=== PATIENT | female | born 2000 | race Two or more races ===

== ENCOUNTER 2021-06-09 19:08 | Emergency (ER) | payer OTHER ==
[~2021-06-09] VITALS: Ht 157.5 cm; Wt 50.2 kg
--- NOTE | 2021-06-09 19:29 | PHYS DOC ---
Adult General Chief Complaint Chief Complaint: VOMITING IN HPI HPI Patient is a 21-year-old female patient 2 para 1 currently 9 weeks presenting to the ED today complaining of nausea, vomiting, symptoms began 3 weeks ago. Patient denies any abdominal pain, denies any fever, denies any vaginal bleeding. She states she has an appointment with her [employer] in 3 weeks. (LLOYD ESPINOSA RANGE SCIENTIST) Review of Systems Review of Systems Constitutional: Denies fever or chills [] Eyes: Denies change in visual acuity, redness, or eye pain [] HENT: Denies nasal congestion or sore throat [] Respiratory: Denies cough or shortness of breath [] Cardiovascular: No additional information not addressed in HPI [] GI: Reports nausea and vomiting in . Denies abdominal pain, bloody stools or diarrhea [] : Denies dysuria or hematuria [] Musculoskeletal: Denies back pain or joint pain [] Integument: Denies rash or skin lesions [] Neurologic: Denies headache, focal weakness or sensory changes [] All other systems were reviewed and found to be within normal limits, except as documented in this note. (LLOYD ESPINOSA RANGE SCIENTIST) Physical Exam Physical Exam Constitutional: Well developed, well nourished, no acute distress, non-toxic appearance. [] HENT: Normocephalic, atraumatic, bilateral external ears normal, oropharynx moist, no oral exudates, nose normal. [] Eyes: PERRLA, EOMI, conjunctiva normal, no discharge. [] Neck: Normal range of motion, no tenderness, supple, no stridor. [] Cardiovascular:Heart rate regular rhythm, no murmur [] Lungs & Thorax: Bilateral breath sounds clear to auscultation [] Abdomen: Bowel sounds normal, soft, no tenderness, no masses, no pulsatile masses. [] Skin: Warm, dry, no erythema, no rash. [] Back: No tenderness, no CVA tenderness. [] Extremities: No tenderness, no cyanosis, no clubbing, ROM intact, no edema. [] Neurologic: Alert and oriented X 3, normal motor function, normal sensory function, no focal deficits noted. [] Psychologic: Affect normal, judgement normal, mood normal. [] (LLOYD ESPINOSA RANGE SCIENTIST) EKG EKG [] (LLOYD ESPINOSA APRN) Radiology/Procedures Radiology/Procedures [] (LLOYD ESPINOSA APRN) Heart Score C/O Chest Pain: N/A Risk Factors: Risk Factors: DM, Current or recent (<one month) smoker, HTN, HLP, family history of CAD, obesity. Risk Scores: Risk Factors: DM, Current or recent (<one month) smoker, HTN, HLP, family history of CAD, obesity. (LLOYD ESPINOSA APRN) Course & Med Decision Making Course & Med Decision Making Pertinent Labs and Imaging studies reviewed. (See chart for details) This is a 21-year-old female patient 2 para 1 currently 9 weeks presenting to the ED today with nausea and vomiting for 3 weeks. CBC no acute findings, CMP with potassium of 3.1, patient was given oral potassium replacement. Beta hCG 198,641 UA positive for UTI, was given Rocephin. Was given a liter of IV fluid and Compazine. Feeling better. Discharged home. Follow-up with [employer] next week. (LLOYD ESPINOSA APRN) Course & Med Decision Making Did not see or evaluate patient. Did not discuss patient with CYTOTECHNOLOGIST SUPERVISOR. Agree with CYTOTECHNOLOGIST SUPERVISOR's work-up and disposition per note (KYLE LEE MD) Dragon Disclaimer Dragon Disclaimer This electronic medical record was generated, in whole or in part, using a voice recognition dictation system. (LLOYD ESPINOSA APRN) Departure Departure: Impression: Primary Impression: Hypokalemia Additional Impressions: Hyperemesis gravidarum Urinary tract infection during Disposition: HOME / SELF CARE / HOMELESS Condition: STABLE Referrals: DAVID PHOENIX DO (PCP) Follow-up with your [employer] next week Patient Instructions: Diet - Hyperemesis Gravidarum, Hyperemesis Gravidarum, Hypokalemia-Brief, - Urinary Tract Infection Additional Instructions: You were seen for hyperemesis gravidarum and UTI. Please take the prescribed antibiotics until completed. Please push fluids. Take the nausea medicine as needed, follow-up with your own doctor as soon as you can Scripts Cephalexin (CEPHALEXIN) 500 Mg Tablet 1 TAB PO BID, #14 TAB Prov: LLOYD ESPINOSA APRN 06/09/21 Prochlorperazine Maleate (Compazine) 10 Mg Tablet 1 TAB PO Q6HRS for 7 Days, #28 TAB 0 Refills Prov: LLOYD ESPINOSA APRN 06/09/21 Problem Qualifiers Additional Impressions: Urinary tract infection during Trimester: first trimester Qualified Codes: O23.41 - Unspecified infection of urinary tract in , first trimester LLOYD ESPINOSA APRN Jun 09, 2021 19:29 KYLE LEE MD Jun 09, 2021 23:13
[2021-06-09] MEDS ORDERED: IV NORMAL SALINE 1,000ML 1,000 ML IV ONE (19:30)
[2021-06-09] MEDS ORDERED: PROCHLORPERAZINE 10 MG/2 ML VIAL. IV ONE (19:30)
[2021-06-09 20:15] LABS: BASO % 0 % (0-3); EOS % 0 % (0-3); HEMATOCRIT 40.4 % (36.0-47.0); HEMOGLOBIN 13.9 g/dL (12.0-15.5); LYMPH # 1.2 x10^3/uL (1.0-4.8); LYMPH % 16 % (24-48); MEAN CORPUSCULAR HEMOGLOBIN 29 pg (25-35); MEAN CORPUSCULAR HGB CONC 35 g/dL (31-37); MEAN CORPUSCULAR VOLUME 85 fL (79-100); MONO # 0.5 x10^3/uL (0.0-1.1); MONO % 7 % (0-9); NEUT # 5.6 x10^3uL (1.8-7.7); NEUT % 76 % (31-73); PLATELET COUNT 316 x10^3/uL (140-400); RED BLOOD COUNT 4.76 x10^6/uL (3.50-5.40); RED CELL DISTRIBUTION WIDTH 16.5 % (11.5-14.5); WHITE BLOOD COUNT 7.3 x10^3/uL (4.0-11.0)
[2021-06-09 20:25] LABS: CLARITY,URINE HAZY; COLOR,URINE YELLOW
[2021-06-09 20:26] LABS: BACTERIA,URINE MOD /HPF (0-FEW); BILIRUBIN,URINE MOD (NEG); GLUCOSE,URINE NEG (NEG); NITRITE,URINE POS (NEG); RBC,URINE 0 /HPF (0-2); WBC,URINE >40 /HPF (0-4)
[2021-06-09 20:27] LABS: SQUAMOUS EPITHELIAL CELL,UR MOD /LPF
[2021-06-09 20:35] LABS: CREATININE 0.6 mg/dL (0.6-1.0); POTASSIUM 3.1 mmol/L (3.5-5.1)
[2021-06-09 20:39] VITALS: BP 113/81
[2021-06-09 20:40] LABS: ALBUMIN 3.4 g/dL (3.4-5.0); ALBUMIN/GLOBULIN RATIO 0.7 (1.0-1.7); TOTAL BILIRUBIN 0.6 mg/dL (0.2-1.0); TOTAL PROTEIN 8.1 g/dL (6.4-8.2)
[2021-06-09] MEDS ORDERED: IV NORMAL SALINE 50ML 50 ML ONE (20:46)
[2021-06-09] MEDS ORDERED: cefTRIAXone SODIUM 1 GM VIAL ONE (20:46)
[2021-06-09] MEDS ORDERED: POTASSIUM BICARB 20 MEQ EFFERVESCENT TABLET. PO ONE (21:15)
[2021-06-09] MEDS ORDERED: CEPH500T PO (22:11)
[2021-06-09] MEDS ORDERED: PROC10TA57 PO (22:11)
== END 2021-06-09 22:21 | disposition home or self-care (01) ==
LOC: ER 19:08
DX: O23.41 Unspecified infection of urinary tract in pregnancy, first trimester (principal); O21.0 Mild hyperemesis gravidarum; O99.281 Endocrine, nutritional and metabolic diseases complicating pregnancy, first trimester; E87.6 Hypokalemia; Z3A.09 9 weeks gestation of pregnancy
CPT/HCPCS: 36415; 80053; 81001; 84702; 85025; 87086; 96361; 96365; 96375; 99284; J0696; J0780; J7030